=== PATIENT | female | born 1960 | race Caucasian/White ===

== ENCOUNTER → 2017-01-20 | Outpatient (CLI) | payer OTHER ==
--- NOTE | ~2017-01-20 | MR165 ---
[facility] A Service of [facility] RADIOLOGY TEXT RESULTS PATIENT: NAHID DELACRUZ LOCATION: [facility] : 60 UNIT #: [id number] AGE: [address]: Lane Henao MD SEX: F ORDER DR: [id number] [facility]. [place], [place] [address] [id number] O MR#: [id number] Acc #: [id number] NAME: NAHID DELACRUZ : 1960 SEX: F STUDY DATE/TIME: 01/20/2017 19:05 UNIT: [facility] ROOM: STUDY DESCRIPTION: MR Shoulder Wo Contrast Rt Attending Physician: Lane Henao M.D. Referring Physician: Lane Henao M.D. Ordering Physician: Lane Henao M.D. Primary Care Physician: Lane Henao M.D. MRI CENTER REPORT This report is preliminary unless electronic signature is present. EXAM Right shoulder MRI without contrast 01/20/2017 HISTORY 56-year-old female with right shoulder pain since October 2016. Order states possible frozen shoulder. No prior right shoulder surgery. COMPARISON STUDIES Right shoulder x-rays 01/12/2017. TECHNIQUE Routine unenhanced multiplanar, multisequence high-field MR imaging of the right shoulder was performed. FINDINGS There is mild supraspinatus and infraspinatus tendinopathy without tear. Teres minor and subscapularis tendons are intact. Long biceps tendon is intact and well positioned in the bicipital groove. No evidence of a labral tear. Glenohumeral articular cartilage is intact. There is mild capsular thickening and pericapsular soft tissue edema in the region of the axillary recess, which may suggest capsulitis. No significant glenohumeral effusion. Acromioclavicular joint is within normal limits. Mild lateral downsloping of the acromion. Mild inflammation subacromial/subdeltoid bursa. Bone marrow signal is within expected limits. Visualized musculature is unremarkable. IMPRESSION 1. Mild supraspinatus and infraspinatus tendinopathy. No evidence of STS. [facility] A Service of [facility] RADIOLOGY TEXT RESULTS PATIENT: NAHID DELACRUZ [facility] UNIT #: [id number] AGE: [address]: Lane Henao MD SEX: F ORDER DR: a rotator cuff tear. 2. No significant labral pathology. 3. Mild capsular thickening and pericapsular soft tissue edema, suggesting capsulitis. 4. Mild lateral downsloping of the acromion. No subacromial spur. Some mild inflammation of the subacromial/subdeltoid bursa. Dictated by... Chris Umana M.D. THIS IS AN ELECTRONICALLY VERIFIED REPORT Chris Umana M.D. at 01/23/2017 6:29 PM OMAR/niyah TD: 01/23/2017 16:35 JOB #: [id number] MRI CENTER REPORT Page 1 of 1 COPY
== END | disposition home or self-care (01) ==
LOC: CMRI 17:45
DX: M75.81 Other shoulder lesions, right shoulder (principal); M75.01 Adhesive capsulitis of right shoulder; M79.89 Other specified soft tissue disorders; M75.51 Bursitis of right shoulder
CPT/HCPCS: 73221